=== PATIENT | male | born 1945 | race Caucasian/White ===

== ENCOUNTER 2017-07-22 14:43 | Emergency (ER) | payer MEDICARE, OTHER ==
[~2017-07-22] VITALS: Ht 162.6 cm; Wt 65.0 kg
[2017-07-22 14:55] VITALS: Ht 162.6 cm; Wt 65.0 kg
[2017-07-22] MEDS ORDERED: CLOT30CR24 TOP (15:21)
--- NOTE | 2017-07-22 15:39 | ERD ---
ER Documentation Chief Complaint Date/Time DATE: 07/22/17 TIME: 15:35 Chief Complaint BIB [facility]ANCE FOR EVAL OF ABD PAIN. HEMMORHOID PAIN. HPI 72-year-old male who presents the emergency room for approximately 1 year of perirectal irritation and hemorrhoids. He was sent here by his primary care physician, Dr. Segundo for further evaluation. He states he is having significant excoriation and irritation of the perianal region. He denies any rectal bleed is chills. He states that there is significant pain and is cleaning the area. He has had evaluation in the past with a biopsy of the hemorrhoid that showed no evidence of acute process. He states that he has been worked up for possible fungal process that was negative. He is seeing a market development director. His symptoms today are very consistent with symptoms over the past year. There is no significant change or difference other than frustration. His doctor sent him to the emergency room for potential specialist care. ROS All systems reviewed and are negative except as per history of present illness. Medications Home Meds Active Scripts Clotrimazole* (Clotrimazole* AF) 1% - 30 Gm Cream.gm., 1 APPLIC TOP BID for 7 Days, TUB Prov:BRANDT MENDOZA MD 07/22/17 PMhx/Soc History of Surgery: No Anesthesia Reaction: No Hx Neurological Disorder: No Hx Respiratory Disorders: No Hx Cardiac Disorders: Yes (HTN) Hx Psychiatric Problems: No Hx Miscellaneous Medical Probl: Yes (DM) Hx Alcohol Use: No Hx Substance Use: No Hx Tobacco Use: No Smoking Status: Former smoker FmHx Family History: No diabetes Physical Exam Vitals Vital Signs Date Time Temp Pulse Resp B/P Pulse Ox O2 Delivery O2 Flow Rate FiO2 07/22/17 14:55 97.9 70 15 134/74 100 Physical Exam General: Well developed, well nourished, no acute distress Head: Normocephalic, atraumatic. Eyes: Pupils equally reactive, EOM intact ENT: Moist mucous membranes Neck: Supple, no lymphadenopathy Respiratory: Lungs clear bilaterally, no distress Cardiovascular: RRR, no murmurs, rubs, or gallops Abdominal: Soft, non-tender, non-distended, no peritoneal signs : Significant well-circumscribed excoriation to the bilateral gluteal and perianal areas where the skin is touching. Small external hemorrhoids that are nonthrombosed and nonbleeding. Digital rectal examination with brown stool, no focal mass or fluctuance noted on internal digital rectal examination. Prostate is of normal size and nontender. MSK: No edema, no unilateral swelling, 5/5 strength Neurologic: Alert and oriented, moving all extremities, normal speech, no focal weakness, no cerebellar signs Skin: As described above Psych: Normal mood Procedures/MDM The patient has a clinical exam consistent with localized irritation and/or fungal infection of the perianal region. There are no clinical signs or symptoms concerning for perirectal or perianal abscess. No evidence of cellulitis or crepitus on exam, no evidence of deep space infection. This is a chronic issue for this patient. He has no evidence of thrombosed hemorrhoids and no evidence of proctitis or prostatitis. I believe the patient was given unreasonable expectations from his primary care physician when he sent him to the emergency room. This appears to be a nuisance for the patient and definitely requires outpatient colorectal surgery consultation however inpatient hospitalization is not appropriate or indicated at this time. I believe another trial of antifungal would be appropriate, keeping the care area clean dry is most appropriate. There are several pedunculated areas that could be related to condyloma, biopsy of these sites would be necessary. No evidence of squamous cell carcinoma at this time. I spoke to Dr. Segundo on the phone and discussed outpatient care. I will provide referral information to our general surgery team. He follow-up with the patient and arrange for this outpatient care. We discussed follow up with the patient's primary care doctor within 24 to 48 hours as needed. We also discussed return to the emergency room for worsening symptoms or worsening condition. Outpatient referral: General surgery Discharge Medications: Clotrimazole Departure Diagnosis: Primary Impression: Rectal pain, chronic Additional Impression: External hemorrhoid Condition: Stable Patient Instructions: Hemorrhoids Referrals: DALTON HALLMAN MD, KAMBIZ M.D. ZADEH, MICHAEL A. MD [facility] YOU HAVE RECEIVED A MEDICAL SCREENING EXAM AND THE RESULTS INDICATE THAT YOU DO NOT HAVE A CONDITION THAT REQUIRES URGENT TREATMENT IN THE EMERGENCY DEPARTMENT. FURTHER EVALUATION AND TREATMENT OF YOUR CONDITION CAN WAIT UNTIL YOU ARE SEEN IN YOUR DOCTORS OFFICE WITHIN THE NEXT 1-2 DAYS. IT IS YOUR RESPONSIBILITY TO MAKE AN APPOINTMENT FOR FOLOW-UP CARE. IF YOU HAVE A PRIMARY DOCTOR --you should call your primary doctor and schedule an appointment IF YOU DO NOT HAVE A PRIMARY DOCTOR YOU CAN CALL OUR PHYSICIAN REFERRAL HOTLINE AT IF YOU CAN NOT AFFORD TO SEE A PHYSICIAN YOU CAN CHOSE FROM THE FOLLOWING [facility] [address] [facility] [address] [facility] [address] [facility] [address] [facility] [address] [facility]. [facility] [address] [facility]. [facility] YOU HAVE RECEIVED A MEDICAL SCREENING EXAM AND THE RESULTS INDICATE THAT YOU DO NOT HAVE A CONDITION THAT REQUIRES URGENT TREATMENT IN THE EMERGENCY DEPARTMENT. FURTHER EVALUATION AND TREATMENT OF YOUR CONDITION CAN WAIT UNTIL YOU ARE SEEN IN YOUR DOCTORS OFFICE WITHIN THE NEXT 1-2 DAYS. IT IS YOUR RESPONSIBILITY TO MAKE AN APPOINTMENT FOR FOLOW-UP CARE. IF YOU HAVE A PRIMARY DOCTOR --you should call your primary doctor and schedule and appointment IF YOU DO NOT HAVE A PRIMARY DOCTOR YOU CAN CALL OUR PHYSICIAN REFERRAL HOTLINE AT . IF YOU CAN NOT AFFORD TO SEE A PHYSICIAN YOU CAN CHOSE FROM THE FOLLOWING [facility]: [facility] [place] [address] [place] [address] [facility] [address] [place] [address] [facility] [address] [place] [address] Additional Instructions: Apply fungal cream twice daily for 7 days. Keep area clean and dry. Follow-up with a colorectal surgeon as an outpatient. BRANDT MENDOZA MD Jul 22, 2017 15:39
== END 2017-07-22 16:28 | disposition home or self-care (01) ==
LOC: E/R 14:43
DX: K64.4 Residual hemorrhoidal skin tags (principal); E11.9 Type 2 diabetes mellitus without complications; I10 Essential (primary) hypertension; F17.210 Nicotine dependence, cigarettes, uncomplicated
CPT/HCPCS: 99284